=== PATIENT | female | born 1985 | race Caucasian/White ===

== ENCOUNTER 2024-10-27 19:43 | Emergency (ER) | payer OTHER ==
[2024-10-27 19:56] VITALS: TEMP 98.6; BMI 34.0
[2024-10-27] MEDS ORDERED: ONDANSETRON 4 MG/2 ML VIAL ONE (20:22)
[2024-10-27] MEDS ORDERED: ACETAMINOPHEN INJECTION 100 ML ONE (20:22)
[2024-10-27] MEDS: SODIUM CHLORIDE 0.9% 500 ML INFUS.BAG IV ONE (20:41)
[2024-10-27] MEDS: ONDANSETRON 4 MG/2 ML VIAL IVPUSH ONE (20:41)
[2024-10-27] MEDS: ACETAMINOPHEN 1000 MG/100 ML BAG IVPB ONE (20:41)
[2024-10-27 20:47] LABS: MCHC 32.8 g/dl (32.2-35.5); MEAN CELL VOLUME 90.3 fl (79.4-94.8); MEAN PLT VOLUME 10.7 fl (9.4-12.3); RDW 13.1 % (12.1-16.8)
[2024-10-27 20:52] LABS: EPI CELLS 25 /uL (0-25.1); HYALINE CASTS 2 /uL (0-3.1); URINE APPEARANCE CLOUDY; URINE BACTERIA 2107 /uL (0-1359); URINE BILIRUBIN NEGATIVE (NEGATIVE); URINE COLOR YELLOW; URINE GLUCOSE (UA) NEGATIVE (NEGATIVE); URINE KETONE NEGATIVE (NEGATIVE); URINE LEUK ESTERASE 2+ (NEGATIVE); URINE NITRITE NEGATIVE (NEGATIVE); URINE PROTEIN 2+ (NEGATIVE); URINE RBC 115 /uL (0-23.9); URINE UROBILINOGEN 1.0 mg/dL (0.2-1.0); URINE WBC 633 /uL (0-25.8)
[2024-10-27 20:56] LABS: INR 1.03 (0.83-1.09); PROTHROMBIN TIME (PATIENT) 11.3 SEC (9.7-13.0)
[2024-10-27 20:58] LABS: ACTIVATED PTT 30.5 SECONDS (25.2-36.5)
[2024-10-27 21:09] LABS: GLUCOSE,RANDOM 81.0 mg/dL (74-106)
[2024-10-27 21:10] LABS: TOT PROT 7.4 g/dl (6.4-8.2)
[2024-10-27 21:11] LABS: CO2 25.0 mmol/L (21-32)
[2024-10-27 21:12] LABS: ALK PHOS 70.0 U/L (40-150)
[2024-10-27 21:15] LABS: CREATININE 0.72 mg/dL (0.55-1.3); SGOT/AST 20.0 U/L (5-34); SGPT/ALT 22.0 U/L (0-55)
[2024-10-27 21:42] LABS: HCV DIAGNOSTIC IN-HOUSE W/RFLX NON-REACTIVE (NONREACTIVE)
[2024-10-27] MEDS ORDERED: KETOROLAC TROMETHAMINE 30 MG/1 ML VIAL ONE (21:59)
[2024-10-27] MEDS ORDERED: CEFTRIAXONE 1 GM/50 ML BAG ONE (21:59)
[2024-10-27] MEDS: KETOROLAC TROMETHAMINE 30 MG/1 ML VIAL IM ONE (22:07)
[2024-10-27] MEDS: CEFTRIAXONE 1,000 MG in DEXTROSE 5%-WATER - 50 ML IVPB ONE (22:07)
[2024-10-27 22:52] LABS: HIV INTERPRETATION NEGATIVE (NEGATIVE)
[2024-10-27 23:51] VITALS: BP 112/75; PULSE 75; RESP 20
== END 2024-10-27 23:52 | disposition home or self-care (01) ==
LOC: JER 19:43
PROC: 3E03329 Introduction of Other Anti-infective into Peripheral Vein, Percutaneous Approach (ICD-10-PCS; principal; 2024-10-27)
PROC: 3E033NZ Introduction of Analgesics, Hypnotics, Sedatives into Peripheral Vein, Percutaneous Approach (ICD-10-PCS; 2024-10-27)
PROC: 3E033GC Introduction of Other Therapeutic Substance into Peripheral Vein, Percutaneous Approach (ICD-10-PCS; 2024-10-27)
PROC: 3E0233Z Introduction of Anti-inflammatory into Muscle, Percutaneous Approach (ICD-10-PCS; 2024-10-27)
DX: N39.0 Urinary tract infection, site not specified (principal); R10.32 Left lower quadrant pain; R11.2 Nausea with vomiting, unspecified; R39.11 Hesitancy of micturition
CPT/HCPCS: 36415; 74177-TC; 80053; 81003; 84703; 85025; 85610; 85730; 86803; 86850; 86900; 86901; 87086; 87389; 99285-25